=== PATIENT | male | born 1940 | race Caucasian/White ===

== ENCOUNTER 2018-06-30 10:12 | Day surgery (SDC) | payer MEDICARE, BC ==
[2018-06-30] MEDS ORDERED: LIDOCAINE 2% MDV (20MG/ML) 20ML VIAL IV ONE (10:13)
[2018-06-30] MEDS ORDERED: PROPOFOL 10 MG/ML VIAL IV ONE (10:13)
--- NOTE | 2018-06-30 15:40 | Operative Note ---
DATE OF SURGERY: 06/30/2018 OPERATION: ESOPHAGOGASTRODUODENOSCOPY with biopsy. 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 Upper endoscopy is performed at this time for further evaluation. ANESTHESIA: Intravenous sedation was administered by the department of anesthesiology and included Diprivan titrated to effect. PROCEDURE: Following informed consent from this alert individual, including a discussion of the risks and benefits of the procedure and an opportunity for the patient to ask questions, the patient was in the left lateral decubitus position. The Olympus [id number] video endoscope was inserted into the esophagus without resistance. The proximal esophagus had a normal appearance with normal folds and distensibility. The mid esophagus likewise was free from mucosal changes. The GE junction was very slightly irregular, and biopsies were taken at this area. The stomach was entered and found to be fairly unremarkable. There were no ulcerations or erosions noted throughout. There was no evidence of gastritis endoscopically. The pylorus was patent. The duodenal bulb, sweep and descending duodenum were then examined in a serial fashion and found to be normal. The endoscope was then withdrawn back into the body of the stomach, where retroflexion accomplished following air insufflation failed to demonstrate any additional changes. The endoscope was then straightened and withdrawn back through the esophagus after biopsies as mentioned were taken and removed from the patient. The patient tolerated the procedure well and was returned to the recovery area in stable condition. IMPRESSION: Fairly unremarkable esophagogastroduodenoscopy with the exception of slight irregularity of the squamocolumnar junction. Biopsies taken. RECOMMENDATION: Further recommendations may be forthcoming pending results of biopsy. Followup will also be with Dr. Cortez. If the patient's pain should persist, perhaps a HIDA scan with Kinevac may prove beneficial to evaluate the gallbladder further. As always, thank you for allowing me to participate in the care of your patient. CC: DO LEO Pandey
--- NOTE | 2018-06-30 15:40 | Operative Note ---
DATE OF SURGERY: 06/30/2018 OPERATION: COLONOSCOPY to the cecum with cold snare polypectomy. INDICATION: History of adenomatous polyps. The patient returns after 5 years for surveillance. ANESTHESIA: Intravenous sedation was administered by the department of anesthesiology and included Diprivan titrated to effect. PROCEDURE: Following informed consent from this alert individual including a discussion of the risks and benefits of the procedure and an opportunity for the patient to ask questions, the patient was in the left lateral decubitus position. A digital rectal examination was performed. No abnormalities were noted. Following this, the Olympus [id number] video colonoscope was inserted into the rectum without resistance. The rectal mucosa had a normal appearance with normal folds and distensibility. The colonoscope was advanced up through the bowel to the level of the cecum without much difficulty. Throughout the bowel the mucosa appeared normal, the folds were normal, and the bowel was fairly well distensible. Diverticulosis was noted in both the left colon and in the ascending colon. The cecum was defined by noting the appendiceal orifice and ileocecal valve. The colon preparation was good. From the base of the cecum, the colonoscope was slowly withdrawn. Again diverticulosis was noted. In the descending colon, there was a 6 mm polyp noted which was removed with cold snare polypectomy and suctioned through the colonoscope into a collection trap. No other changes were noted throughout the bowel. Retroflexion in the rectum did reveal small internal hemorrhoids. The endoscope was straightened and removed. The patient tolerated the procedure well and was returned to the recovery area in stable condition. IMPRESSION: 1. A 6 mm descending colon polyp removed with cold snare polypectomy. 2. Magana diverticulosis. 3. Small internal hemorrhoids. RECOMMENDATIONS: The patient was advised to follow up with Tyree Cortez DO, for further testing if necessary. Further recommendations may be forthcoming pending pathology obtained today. As always, thank you for allowing me to participate in the care of your patient. CC: DO LEO Pandey
== END 2018-06-30 12:28 | disposition home or self-care (01) ==
LOC: HOP 10:12
PROVIDERS: ATTEND Internal Medicine Gastroenterology
DX: Z12.11 Encounter for screening for malignant neoplasm of colon (principal); Z86.010 Personal history of colon polyps; D12.4 Benign neoplasm of descending colon; K57.30 Diverticulosis of large intestine without perforation or abscess without bleeding; R10.11 Right upper quadrant pain; Z87.19 Personal history of other diseases of the digestive system; K31.9 Disease of stomach and duodenum, unspecified; K21.9 Gastro-esophageal reflux disease without esophagitis; I10 Essential (primary) hypertension; E78.00 Pure hypercholesterolemia, unspecified; J45.909 Unspecified asthma, uncomplicated; M19.90 Unspecified osteoarthritis, unspecified site; M06.9 Rheumatoid arthritis, unspecified